=== PATIENT | female | born 1955 | race Caucasian/White ===

== ENCOUNTER → 2016-06-15 | Outpatient (CLI) | payer BC ==
[~2016-06-15] VITALS: Ht 158.8 cm; Wt 88.7 kg
[~2016-06-15] MED LIST: ADIPEX-P37.5 MG; ADIPEX-P37.5 MG PO; AMBIEN 10MG10 MG PO; ASPIRIN E.C. 8181 MG PO; FASTIN30 MG PO; NAPROSYN500 MG PO; NORCO 325 MG-51 TAB PO; OMEGA-3 FISH1000 MG; PHENTERMINE15 MG PO; PRILOSEC 20MG20 MG PO; SAXENDA6 MG/ML SQ; TEGRETOL X200 MG/TA1 PO; VITAMIN B COMPL1 T16 PO; VITAMIN D1000 IU PO; VITAMIN D32000 I1 PO; ZOCOR 20MG20 MG PO
[2016-06-15 15:03] VITALS: BP 124/86; PULSE 122
[2016-06-15 15:46] VITALS: BP 124/86; PULSE 122
== END ==
LOC: LIGHT 05-18 10:53
DX: E78.4 Other hyperlipidemia (principal); G47.33 Obstructive sleep apnea (adult) (pediatric); K21.9 Gastro-esophageal reflux disease without esophagitis; E66.09 Other obesity due to excess calories; Z68.35 Body mass index [BMI] 35.0-35.9, adult

== ENCOUNTER → 2016-07-20 | Outpatient (CLI) | payer BC ==
[~2016-07-20] VITALS: Ht 158.8 cm; Wt 85.5 kg
[2016-07-20 16:06] VITALS: BP 130/90; PULSE 88
[2016-08-07 09:45] VITALS: BP_SYST 158.75; PULSE 222
== END ==
LOC: LIGHT 14:11
DX: E78.4 Other hyperlipidemia (principal); G47.33 Obstructive sleep apnea (adult) (pediatric); E66.8 Other obesity; Z68.34 Body mass index [BMI] 34.0-34.9, adult; K21.9 Gastro-esophageal reflux disease without esophagitis

== ENCOUNTER → 2016-08-17 | Outpatient (CLI) | payer BC ==
[~2016-08-17] VITALS: Ht 158.8 cm; Wt 84.6 kg
[2016-08-17 16:42] VITALS: BP 130/76; PULSE 64
[2016-09-04 12:01] VITALS: BP_SYST 158.75; PULSE 222
== END ==
LOC: LIGHT 14:55
DX: E78.4 Other hyperlipidemia (principal); K21.9 Gastro-esophageal reflux disease without esophagitis; G47.33 Obstructive sleep apnea (adult) (pediatric); E66.8 Other obesity; Z68.33 Body mass index [BMI] 33.0-33.9, adult

== ENCOUNTER → 2016-09-28 | Outpatient (CLI) | payer BC ==
[~2016-09-28] VITALS: Ht 158.8 cm; Wt 83.9 kg
[2016-09-28 09:16] VITALS: BP 135/73; PULSE 81
== END ==
LOC: LIGHT 09:00
DX: E78.5 Hyperlipidemia, unspecified (principal); G47.33 Obstructive sleep apnea (adult) (pediatric); E66.9 Obesity, unspecified; Z68.33 Body mass index [BMI] 33.0-33.9, adult; Z71.3 Dietary counseling and surveillance; K21.9 Gastro-esophageal reflux disease without esophagitis

== ENCOUNTER → 2016-11-16 | Outpatient (CLI) | payer BC ==
[~2016-11-16] VITALS: Ht 158.8 cm; Wt 83.2 kg
[2016-11-16 10:50] VITALS: BP 138/90; PULSE 80
== END ==
LOC: LIGHT 11-02 12:17
DX: E78.5 Hyperlipidemia, unspecified (principal); G47.33 Obstructive sleep apnea (adult) (pediatric); E66.9 Obesity, unspecified; Z68.33 Body mass index [BMI] 33.0-33.9, adult; Z71.3 Dietary counseling and surveillance; K21.9 Gastro-esophageal reflux disease without esophagitis

== ENCOUNTER → 2017-01-04 | Outpatient (CLI) | payer BC ==
[~2017-01-04] VITALS: Ht 158.8 cm; Wt 86.4 kg
[2017-01-04 08:53] VITALS: BP 120/80; PULSE 80
[2017-01-08 09:53] VITALS: BP 118/70; PULSE 60
== END ==
LOC: LIGHT 08:40
DX: E78.5 Hyperlipidemia, unspecified (principal); G47.33 Obstructive sleep apnea (adult) (pediatric); E66.9 Obesity, unspecified; Z68.34 Body mass index [BMI] 34.0-34.9, adult; Z71.3 Dietary counseling and surveillance; K21.9 Gastro-esophageal reflux disease without esophagitis

== ENCOUNTER → 2017-03-08 | Outpatient (CLI) | payer BC ==
[~2017-03-08] VITALS: Ht 158.8 cm; Wt 84.8 kg
[2017-03-08 09:04] VITALS: BP 134/82; PULSE 68
== END ==
LOC: LIGHT 08:56
DX: E78.5 Hyperlipidemia, unspecified (principal); G47.33 Obstructive sleep apnea (adult) (pediatric); E66.9 Obesity, unspecified; Z68.33 Body mass index [BMI] 33.0-33.9, adult; Z71.3 Dietary counseling and surveillance; K21.9 Gastro-esophageal reflux disease without esophagitis

== ENCOUNTER → 2017-06-14 | Outpatient (CLI) | payer BC ==
[~2017-06-14] VITALS: Ht 158.8 cm; Wt 87.1 kg
[~2017-06-14] MED LIST changes: -ADIPEX-P37.5 MG PO; +TOPROL XL 25MG25 MG PO; +ZESTRIL 5MG5 MG PO
[2017-06-14 08:58] VITALS: BP 120/80; PULSE 88
== END ==
LOC: LIGHT 08:37
DX: E78.5 Hyperlipidemia, unspecified (principal); G47.33 Obstructive sleep apnea (adult) (pediatric); E66.9 Obesity, unspecified; Z68.34 Body mass index [BMI] 34.0-34.9, adult; Z71.3 Dietary counseling and surveillance; K21.9 Gastro-esophageal reflux disease without esophagitis
CPT/HCPCS: G0463

== ENCOUNTER 2017-08-08 07:35 | Day surgery (SDC) | payer BC ==
[~2017-08-08] VITALS: Ht 160.1 cm; Wt 87.3 kg
[2017-08-08] VITALS (11 sets, daily range): BP systolic 93–136; BP diastolic 57–88; PULSE 78–92; TEMP 97.5–98
[2017-08-08 08:19] LABS: HEMATOCRIT 42.4 % (37.0-47.0); HEMOGLOBIN 14.3 g/dl (12.5-16.0); MEAN CELL VOLUME 86 fl (80.0-100.0); MEAN CORPUSCULAR HEMOGLOBIN 29 pg (27.0-31.0); MEAN CORPUSCULAR HGB CONC 34 g/dl (33.0-37.0); MEAN PLATELET VOLUME 10.1 fl (7.4-10.4); PLATELET COUNT 299 K/mm3 (130-400); RED BLOOD COUNT 4.93 M/mm3 (4.10-5.30); REDCELL DISTRIBUTION WIDTH-CV 14.2 % (11.5-14.5)
[2017-08-08 08:21] LABS: INR 1.1 (0.8-3.0); PROTHROMBIN TIME 12.2 SECONDS (9.7-12.8)
[2017-08-08] MEDS ORDERED: MULTIVITAMIN1 CTB PO (08:23)
[2017-08-08 08:26] LABS: CALCIUM 9.2 mg/dL (8.4-10.2); CREATININE, serum 0.69 mg/dL (0.52-1.25); POTASSIUM 4.1 mmol/L (3.4-5.0)
== END 2017-08-08 16:20 | disposition home or self-care (01) ==
LOC: COL.CAR 07:35
PROVIDERS: Internal Medicine Cardiovascular Disease
DX: I42.9 Cardiomyopathy, unspecified (principal); R93.1 Abnormal findings on diagnostic imaging of heart and coronary circulation; Z87.74 Personal history of (corrected) congenital malformations of heart and circulatory system; E78.2 Mixed hyperlipidemia; G47.33 Obstructive sleep apnea (adult) (pediatric); E66.9 Obesity, unspecified; Z68.35 Body mass index [BMI] 35.0-35.9, adult; G40.909 Epilepsy, unspecified, not intractable, without status epilepticus; K21.9 Gastro-esophageal reflux disease without esophagitis; M19.079 Primary osteoarthritis, unspecified ankle and foot; Z79.82 Long term (current) use of aspirin
CPT/HCPCS: J2060; J2250; J3010; Q9967

== ENCOUNTER → 2018-03-14 | Outpatient (CLI) | payer BC ==
[~2018-03-14] VITALS: Ht 160.1 cm; Wt 92.3 kg
[~2018-03-14] MED LIST changes: +MULTIVITAMIN1 CTB PO; -OMEGA-3 FISH1000 MG; +OMEGA-3 FISH1000 MG PO; +PROZAC40 MG PO
[2018-03-14 09:45] VITALS: BP 140/84; PULSE 64
== END ==
LOC: LIGHT 09:30
DX: E78.5 Hyperlipidemia, unspecified (principal); G47.33 Obstructive sleep apnea (adult) (pediatric); K21.9 Gastro-esophageal reflux disease without esophagitis; E66.9 Obesity, unspecified; Z68.36 Body mass index [BMI] 36.0-36.9, adult; Z71.3 Dietary counseling and surveillance
CPT/HCPCS: G0463

== ENCOUNTER 2018-04-16 14:02 | Day surgery (SDC) | payer BC ==
[~2018-04-16] VITALS: Ht 160 cm; Wt 91.5 kg
[~2018-04-16 14:02] MED LIST changes: +B COMPLEX #11 TA1 PO; -VITAMIN B COMPL1 T16 PO
[2018-04-16 14:22] VITALS: BP 140/67; PULSE 74; TEMP 98.1
[2018-04-16] MEDS ORDERED: KRILL OIL 3001 EACH PO (14:29)
[2018-04-16] MEDS ORDERED: NAPROSYN500 MG PO (14:29)
[2018-04-16] MEDS ORDERED: PERCOCET 325 MG1 TA2 PO (14:31)
[2018-04-16 17:37] VITALS: BP 134/62; PULSE 80; TEMP 98.1
[2018-04-16 17:52] VITALS: BP 128/59; PULSE 67
[2018-04-16 18:07] VITALS: BP 126/64; PULSE 72
[2018-04-16 18:22] VITALS: BP 131/62; PULSE 71
== END 2018-04-16 19:30 | disposition home or self-care (01) ==
LOC: SDCO 14:02 → SURG 18:19 → SDCO 18:30
DX: N20.1 Calculus of ureter (principal); Z87.442 Personal history of urinary calculi; Z79.82 Long term (current) use of aspirin; Z79.899 Other long term (current) drug therapy; Z98.51 Tubal ligation status; Z96.651 Presence of right artificial knee joint; Z80.42 Family history of malignant neoplasm of prostate; I10 Essential (primary) hypertension; F32.9 Major depressive disorder, single episode, unspecified; R56.9 Unspecified convulsions; M48.00 Spinal stenosis, site unspecified
CPT/HCPCS: OP; C1769; C2617; J0690; J1100; J1885; J2175; J2405; J2704; J3010; J7120; Q9967

== ENCOUNTER → 2018-04-25 | Outpatient (CLI) | payer BC ==
[~2018-04-25] VITALS: Ht 160 cm; Wt 89.8 kg
[~2018-04-25] MED LIST changes: +KRILL OIL 3001 EACH PO; +PERCOCET 325 MG1 TA2 PO
[2018-04-25 16:27] VITALS: BP 106/70; PULSE 80
== END ==
LOC: LIGHT 04-18 10:55
DX: E78.5 Hyperlipidemia, unspecified (principal); G47.33 Obstructive sleep apnea (adult) (pediatric); K21.9 Gastro-esophageal reflux disease without esophagitis; E66.9 Obesity, unspecified; Z68.35 Body mass index [BMI] 35.0-35.9, adult; Z71.3 Dietary counseling and surveillance
CPT/HCPCS: G0463

== ENCOUNTER → 2019-10-16 | Outpatient (CLI) | payer BC ==
[~2019-10-16] VITALS: Ht 160 cm; Wt 89.4 kg
[~2019-10-16] MED LIST changes: +FLONASEALLERGY NS; +TOPAMAX 25MG25 M1 PO
[2019-10-16 15:40] VITALS: BP 118/80; PULSE 72
== END ==
LOC: LIGHT 07-31 11:23
DX: E66.8 Other obesity (principal); Z68.34 Body mass index [BMI] 34.0-34.9, adult; E78.5 Hyperlipidemia, unspecified
CPT/HCPCS: G0463

== ENCOUNTER → 2019-12-11 | Outpatient (CLI) | payer BC ==
[~2019-12-11] VITALS: Ht 160 cm; Wt 86.9 kg
[2019-12-11 15:57] VITALS: BP 104/70; PULSE 72
== END ==
LOC: LIGHT 11-27 10:50
DX: E66.8 Other obesity (principal); Z68.33 Body mass index [BMI] 33.0-33.9, adult; E78.5 Hyperlipidemia, unspecified; G47.30 Sleep apnea, unspecified; K21.9 Gastro-esophageal reflux disease without esophagitis
CPT/HCPCS: G0463

== ENCOUNTER → 2020-02-12 | Outpatient (CLI) | payer BC ==
[~2020-02-12] VITALS: Ht 160 cm; Wt 86.0 kg
[2020-02-12 16:31] VITALS: BP 124/72; PULSE 80
== END ==
LOC: LIGHT 14:47
DX: E66.8 Other obesity (principal); Z68.33 Body mass index [BMI] 33.0-33.9, adult; E78.5 Hyperlipidemia, unspecified
CPT/HCPCS: G0463